=== PATIENT | male | born 1985 | race Caucasian/White ===

== ENCOUNTER → 2018-10-17 11:27 | Outpatient (CLI) | payer MEDICAID, SELFPAY | PROVIDERS: Family Provider Family Medicine; PCP Family Medicine; Visit Provider Family Medicine | DX: R11.10 Vomiting, unspecified (principal) ==

== ENCOUNTER → 2022-01-02 | Outpatient (CLI) | payer MEDICARE, MEDICAID, SELFPAY ==
--- NOTE | 2022-01-02 14:18 | RAD_ITS ---
STUDY: X-RAY - LUMBAR SPINE REASON FOR EXAM: Male, 36 years old. OTHER INTERVERTEBRAL DISC DEGENERATION, LUMBOSACRAL REGION TECHNIQUE: 3 view(s) of the lumbar spine were obtained. COMPARISON: None FINDINGS: Normal lumbar lordosis. There is scoliosis. There is a normal alignment of the vertebrae. Normal vertebral bodies and endplates. Normal disc space heights. The soft tissue structures are unremarkable. RAD/Lumbar Spine 2 or 3 Views IMPRESSION: There is scoliosis. No evidence of fracture. Electronically Signed: Judah Alcala MD at 6:45 EDT ,
== END | disposition home or self-care (01) ==
PROVIDERS: PCP Family Medicine; Visit Provider Anesthesiology Pain Medicine
DX: M51.37 Other intervertebral disc degeneration, lumbosacral region (principal)
CPT/HCPCS: 72100

== ENCOUNTER 2022-01-05 14:50 | Outpatient (RCR) | payer MEDICARE, MEDICAID, SELFPAY ==
--- NOTE | 2022-01-05 15:39 | HP.PTEVAL ---
Patient's Visit Information POLLY العراقي is a 36 year old M referred to Physical Therapy by Dr. Kate Ventura MD with a diagnosis of Back pain. Date of Evaluation: 01/05/22 Physical Therapist: Hollis Roberto DPT, OCS, CSCS - Visit Plan Frequency: 2x /Week Duration: 4-6 Weeks Plan: 2x/week for 4 weeks for. 1. HS and quad stretching to HEP. 2. LB ROM exercises to HEP. 3. pelvic, hip, core and le/postural strength in gym with joining local gym as exit strategy with list. - Subjective Staff is with him. I got scoliosis. Can't get rid of it. Pain since 17. pain is over spine LB to thoracic spine. pain is a lot worse now. is on arthitis meds. Worsening with working long hours. 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 Worse after work. Pain after work 6/10 and feels better when relaxed at home and in shower. Gets aleida horses in legs, denies numbness or tingling. Cramps are in calves. Sleep is interrupted sometimes after busy work. Lives with two other guys in shelter. Has basement steps which are not a problem. Dresses self and cooks and basic ADLs are done I. Plays video games and pain not a problem here. No exercises for back. - Pain LBP Pain Intensity (Out of 10): 0 Pain Intensity Range: 0, 6 - Objective Walks normal adn I into PT . Trasnfers I, Steps with one rail I. A and O to place and persona nd day. LB AROM ext min limited, flexion mod limited, SB min limited, no pain today except mild discomfort ipsilaterally with each SB. very tight HS at -40 90/90 test B and quad with limitations when hip extended. reflexes 2/3 patella and achilles. Sensation LE WNL to gross light touch. Strength LE ankles and knees 4+ B, hip ext and abd 3+ and flexion 4- B. - slump, - SLR. Poor pelvic control, ab and back extension strength 3+. - Balance/Special Test Scores Oswestry Low Back Score: 10 - Goals Goal 1:: Work without increased pain in LB for 6 hours. Goal Time Frame: 2-4 Weeks Goal 2:: I approp HEP too manage condition and pain Goal Time Frame: 2-4 Weeks Goal 3:: LBP 0-1/10 at worst and 80% better. Goal Time Frame: 2-4 Weeks Goal 4:: oswestry score 5 or less. Goal Time Frame: 2-4 Weeks - Rehabilitation Potential Physical Therapy Diagnosis: LBP from likely degenerative changes and weakness. Rehabilitation Potential: Fair - Anticipated Interventions Patient/Client Instruction: Educate patient on: Condition, Plan of Care For the Purpose of:: To decrease pain, To increase ROM, To improve muscle performance and motor function, To increase tolerance to activity/condition/position, To improve ability of physical actions for home/community/work/leisure Therapeutic Exercise to Include: Strength training, Flexibilty training, Passive ROM, Active ROM, Dynamic Lumbar Stabilization For the Purpose of:: To decrease pain, To increase ROM, To improve muscle performance and motor function Manual Therapy Techniques to Include: Passive ROM, Soft tissue mobilization For the Purpose of:: To increase ROM Thank you for the opportunity to evaluate your patient. For Medicare and Medicare HMO plans, please review the plan of care and approve it. It will need to be FAXED BACK to us at [phone] for Medicare purposes. For Medicare only, by signing this I certify the plan of care. Please let me know if there are questions or concerns regarding this plan of care. Physician Signature: Date:
--- NOTE | 2022-02-09 19:04 | HP.PTDCNRP_ITS ---
POLLY العراقي was seen in my office for initial evaluation on 01/05/22. The following Plan of Care was established for this patient: Initial Frequency: 2x /Week Initial Duration: 4-6 Weeks Patient/Client Instruction: Educate patient on: Condition, Plan of Care For the Purpose of:: To decrease pain, To increase ROM, To improve muscle performance and motor function, To increase tolerance to activity/condition/position, To improve ability of physical actions for home/com munity/work/leisure Therapeutic Exercise to Include: Strength training, Flexibilty training, Passive ROM, Active ROM, Dynamic Lumbar Stabilization For the Purpose of:: To decrease pain, To increase ROM, To improve muscle performance and motor function Manual Therapy Techniques to Include: Passive ROM, Soft tissue mobilization For the Purpose of:: To increase ROM This patient was last seen in our office 01/05/22. Pertinent comments regarding their Physical therapy will appear below: Pt seen one visit and has no showed for the next four. yarn cleaner have been contacted that were supposed to get him here but the no shows continued. At this point, I will discontinue from my care due to nonattendance. At this point I will be discontinuing this patient from physical therapy. I would be happy to see this patient again in the future if found appropriate by the physician. Thank you! Hollis Roberto, DPT, OCS, CSCS Balance/Gait/Functional tests - Balance/Special Test Scores Oswestry Low Back Score: 10
== END 2022-01-05 19:00 | disposition home or self-care (01) ==
LOC: PT 14:50
PROVIDERS: PCP Family Medicine; Referring Provider Anesthesiology Pain Medicine; Visit Provider Anesthesiology Pain Medicine
DX: M54.9 Dorsalgia, unspecified (principal)
CPT/HCPCS: 97161

== ENCOUNTER → 2022-02-09 | Outpatient (CLI) | payer MEDICARE, MEDICAID, SELFPAY ==
--- NOTE | 2022-02-09 06:37 | MRI_ITS ---
STUDY: MRI LUMBAR SPINE WITHOUT CONTRAST REASON FOR EXAM: Male, 36 years old. RADICULOPATHY TECHNIQUE: Standardized fat and water weighted pulse sequences were obtained in the sagittal and axial planes. COMPARISON: X-ray the lumbar spine dated JANUARY 02, 2022 FINDINGS: No visualized fracture or marrow edema or compression deformity. Chronic bilateral L5 pars interarticularis defects. Multilevel listhesis of no more than 2 to 3 mm associated with scoliosis. T12-L1: Normal endplates. Normal disc height, hydration and morphology. Normal bilateral facet joints. Normal central canal and bilateral lateral recesses. Normal bilateral intervertebral neural foramina. Normal lumbar lordosis. Moderate to significant levoscoliosis. Normal conus medullaris that terminates at the T11-T12 level. L1-2: Diffuse disc desiccation with mild right side disc space narrowing and minimal annular bulging. Normal bilateral facet joints. Normal central canal and bilateral lateral recesses. Normal bilateral intervertebral neural foramina. L2-3: Normal endplates. Diffuse disc desiccation and minimal posterior asymmetric disc space narrowing without bulging or herniation of the disc. Normal bilateral facet joints. Normal central canal and bilateral lateral recesses. Normal bilateral intervertebral neural foramina. L3-4: Normal endplates. Mild posterior asymmetric disc space narrowing without bulging or herniation of the disc. Normal bilateral facet joints. Normal central canal and bilateral lateral recesses. Normal bilateral intervertebral neural foramina. L4-5: Normal endplates. Minimal posterior disc space narrowing without significant bulging or herniation of the disc. Mild facet joint hypertrophy. Normal central canal and bilateral lateral recesses. Normal bilateral intervertebral neural foramina. L5-S1: Chronic bilateral L5 pars interarticularis defects with anterolisthesis of L5 on S1 of the 7 mm. Bilateral mild foraminal stenosis in addition to traction/impingement on the nerve roots. Mild facet joint hypertrophy and degeneration. Normal endplates. Diffuse disc desiccation with mild posterior disc space narrowing without significant bulging or herniation. Normal central canal and bilateral lateral recesses. Normal visualized sacral ala. Normal visualized paraspinous soft tissue structures. MRI/Spine Lumbar (Routine) IMPRESSION: 1. Multilevel degenerative changes, as described above. 2. Chronic bilateral L5 pars interarticularis defects with anterolisthesis of L5 on S1 of the 7 mm. Bilateral mild foraminal stenosis in addition to traction/impingement on the nerve roots. Electronically Signed: Nato Merida MD at 12:31 EDT ,
== END | disposition home or self-care (01) ==
LOC: MRI 06:29
PROVIDERS: PCP Family Medicine; Referring Provider Anesthesiology Pain Medicine; Visit Provider Anesthesiology Pain Medicine
DX: M54.16 Radiculopathy, lumbar region (principal)
CPT/HCPCS: 72148

== ENCOUNTER 2022-10-24 16:09 | Emergency (ER) | payer MEDICARE, MEDICAID, SELFPAY ==
[2022-10-24 16:09] VITALS: BP 133/120; PULSE 69; RESP 16; TEMP 36.6; O2SAT 98; BMI 31.1
--- NOTE | 2022-10-24 16:27 | EKG12_ITS ---
Test Reason : CP Blood Pressure : / mmHG Vent. Rate : 065 BPM Atrial Rate : 065 BPM P-R Int : 182 ms QRS Dur : 092 ms QT Int : 380 ms P-R-T Axes : 059 057 030 degrees QTc Int : 395 ms Normal sinus rhythm Possible Left atrial enlargement Borderline ECG Confirmed by YAYA VYAS, SYLVIA ([id number]), city editor APRIL CONTEH ([id number]) on 10/25/2022 9:05:31 AM Referred By: [place] Confirmed By:SYLVIA JAVIER MD
--- NOTE | 2022-10-24 16:34 | EDS_ITS ---
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 He states it felt more like an air bubble in the left side of his chest, but it is improving. He lives in [place] and told his staff that he was feeling discomfort in the left side of his chest. He denies any nausea or vomiting. No shortness of breath or diaphoresis. He does use chewing tobacco. His history and physical is mildly limited secondary to his autism, but he states that his pain has improved and is almost gone upon examination and arrival to the ED. [facility] Medical History Essential hypertension Fibromyalgia Generalized anxiety disorder GERD (gastroesophageal reflux disease) High-functioning autism spectrum disorder History of mitral valve prolapse Mixed hyperlipidemia Primary insomnia Home Medications aripiprazole 30 mg tablet 30 mg PO DAILY 02/28/22 [History Last Taken Unknown] fenofibrate 54 mg tablet 54 mg PO DAILY 02/28/22 [History Last Taken Unknown] lisinopril 10 mg tablet 10 mg PO DAILY 02/28/22 [History Last Taken Unknown] loratadine 10 mg tablet 10 mg PO DAILY 02/28/22 [History Last Taken Unknown] metoprolol succinate 50 mg tablet,extended release 24 hr 50 mg PO DAILY 02/28/22 [History Last Taken Unknown] omeprazole 40 mg capsule,delayed release 40 mg PO DAILY 02/28/22 [History Last Taken Unknown] polyethylene glycol 3350 17 gram oral powder packet (Miralax) 17 g PO DAILY 02/28/22 [History Last Taken Unknown] trazodone 50 mg tablet 50 mg PO QHS PRN Sleep 02/28/22 [History Last Taken Unknown] trihexyphenidyl 2 mg tablet 2 mg PO QHS PRN sleep 02/28/22 [History Last Taken Unknown] verapamil 120 mg tablet,extended release 120 mg PO BID 02/28/22 [History Last Taken Unknown] Allergy/AdvReac Type Severity Reaction Status Date / Time No Known Drug Allergies Allergy Unknown Unknown Verified 10/24/22 16:11 Surgical History History of cholecystectomy Social History Smoking Status: Never smoker Smokeless tobacco user: snuff alcohol intake: never substance use type: does not use ROS ROS ED ROS Narrative Constitutional: No fever, no chills. HEENT: No sore throat. No neck pain. No loss of vision. No rhinorrhea. Cardiovascular: Left-sided chest pain. No palpitations. No pedal edema. Respiratory: No cough, no shortness of breath. Abdominal: No abdominal pain. No nausea. No vomiting. Genitourinary: No dysuria. No hematuria. Musculoskeletal: No myalgias. No arthralgias. Neurologic: No headaches. No dizziness. No lightheadedness. Skin: No rash. No change in color. Psychiatric: No depression. No anxiety. EXAM Physical Exam Narrative Exam Narrative: Afebrile. Vital signs noted. HEENT: Normocephalic. Atraumatic. PERRL, EOMI. Neck soft and supple. No point tenderness or step off. Cardiovascular: Regular rate and rhythm. No murmurs, rubs, or gallops appreciated. No reproducible pain or crepitance left chest. Respiratory: No tachypnea. Lungs clear to auscultation bilaterally. Gastrointestinal: Abdomen soft, nontender, with normoactive bowel sounds. No rebound or guarding. Neurological: Awake. Alert. Nonfocal, nonlateralizing. Skin: No rash. Normal color. No pallor. Musculoskeletal: No pedal edema. Full range of motion extremities. Psychiatric: Consistent with autism. Mild anxiety. Const Vital Signs: 10/24/22 16:09 10/24/22 16:54 10/24/22 16:57 Temperature 98 F Temperature Source Temporal Pulse Rate 69 Respiratory Rate 16 Respiratory Effort Normal Non-Labored Blood Pressure 133/120 H Blood Pressure Mean 124 Pulse Ox 98 97 Oxygen Delivery Method Room Air Room Air 10/24/22 18:35 10/24/22 19:16 Temperature Temperature Source Pulse Rate 64 74 Respiratory Rate 14 16 Respiratory Effort Blood Pressure 138/86 H 138/88 H Blood Pressure Mean 103 104 Pulse Ox 98 98 Oxygen Delivery Method Room Air Room Air Heart Score History: Slightly/Non-Suspicious ECG: Normal Age: </= 45 years Risk Factors: 1 or 2 Risk Factors Score: 1 MDM MDM MDM Narrative Medical decision making narrative: Patient has a low heart score. EKG was obtained to rule out STEMI and interpreted by myself which demonstrates normal sinus rhythm at 65 bpm without ectopy or acute ST changes. No STEMI. He was given aspirin. Chest pain work- up will be pursued including laboratory work in the form of CBC and BMP along with troponin and delta troponin. Chest x-ray will also be obtained. I reviewed his laboratory work, he has a normal white count of 8.3, normal hemoglobin of 15.5, normal platelet count of 313. BMP is grossly unremarkable with normal sodium of 140 and normal potassium of 3.9. Glucose appropriately elevated at 115 with a normal anion gap of 6. Initial high-sensitivity troponin is 11. 2-hour repeat is 14 and less than 7 for a delta troponin. I interpreted his chest x-ray which shows no acute process, no pneumothorax and no evidence of pneumonia. I reviewed the radiology report which confirms this. At this point in time, given his negative work-up and rule out by biomarkers, I feel he can be discharged safely home with follow-up to his primary care provider. Disposition is discharged home in stable condition. Return instructions were reviewed. Lab Data Attestation: I reviewed the patient's lab results. Labs: Laboratory Results - last 24 hr 10/24/22 10/24/22 10/24/22 16:50 16:50 19:12 WBC 8.3 RBC 5.73 Hgb 15.5 Hct 45.6 MCV 79.6 L MCH 27.1 MCHC 34.0 RDW Std Deviation 37.2 RDW Coeff of Vivek 13.1 Plt Count 313 MPV 10.2 Immature Gran % (Auto) 0.200 Neut % (Auto) 71.7 H Lymph % (Auto) 21.5 Gila % (Auto) 5.0 Eos % (Auto) 1.2 Baso % (Auto) 0.4 Absolute Neuts (auto) 6.0 Absolute Lymphs (auto) 1.79 Nucleated RBC % 0 Sodium 140 Potassium 3.9 Chloride 107 Carbon Dioxide 27.0 Anion Gap 6 BUN 13 Creatinine 0.98 Estim Creat Clear Calc 104.21 Est GFR (MDRD) Af Amer 112 Est GFR (MDRD) Non-Af 92 BUN/Creatinine Ratio 13.3 Glucose 115 H Calcium 9.1 Troponin I High Sens 11 14 Radiography Diagnostic Testing: Clinical Impression(s) from Imaging Studies Chest X-Ray 10/24/22 17:04 IMPRESSION: No radiographic evidence of acute cardiopulmonary disease. Electronically Signed: Pippa Smalls MD at 17:44 EST , Discharge Plan Triage Chief Complaint: Chest Pain ED Provider: Mayo White Dx/Rx/DC Orders Clinical Impression: Chest pain, Essential hypertension Instructions: ED Chest Pain, Uncertain Cause Prescriptions: No Action polyethylene glycol 3350 [Miralax] 17 gram powder in packet 17 g PO DAILY metoprolol succinate 50 mg tablet extended release 24 hr 50 mg PO DAILY fenofibrate 54 mg tablet 54 mg PO DAILY omeprazole 40 mg capsule,delayed release(DR/EC) 40 mg PO DAILY lisinopril 10 mg tablet 10 mg PO DAILY verapamil 120 mg tablet extended release 120 mg PO BID aripiprazole 30 mg tablet 30 mg PO DAILY trihexyphenidyl 2 mg tablet 2 mg PO QHS PRN (Reason: sleep) trazodone 50 mg tablet 50 mg PO QHS PRN (Reason: Sleep) loratadine 10 mg tablet 10 mg PO DAILY Primary Care Provider: Js Jama Referrals: Js Jama MD [Primary Care Provider] - 3-5 Days if not improving Disposition Disposition: Home, Self Care
[2022-10-24 16:54] VITALS: O2SAT 97
[2022-10-24 16:59] LABS: Absolute Lymphocyte Count 1.79 X10^3/uL (0.83-4.51); Basophil# 0.03 X10^3/uL; Basophil% 0.4 % (0-1); Eosinophils% 1.2 % (0-5); Hematocrit 45.6 % (40-54); Hemoglobin 15.5 g/dL (13.0-16.5); Lymphocyte # 1.79 X10^3/ul (0.83-4.51); Lymphocyte % 21.5 % (19-41); Mean Corpuscular Hgb 27.1 pg (27.0-32.0); Mean Corpuscular Volume 79.6 fL (80-94); Mean Platelet Vol. 10.2 fl (6.2-12.0); Monocyte# 0.42 X10^3/uL; NRBC Flagged by Analyzer 0 % (0-5); Neutrophil # 5.97 X10^3/uL (2.7-7.7); Neutrophil % 71.7 % (47-70); Platelet Count 313 K/mm3 (150-450); RBC Distribution Width CV 13.1 % (11.6-14.6); RBC Distribution Width SD 37.2 fl (35.1-43.9); Red Blood Count 5.73 M/mm3 (4.6-6.2); White Blood Count 8.3 K/mm3 (4.4-11.0)
--- NOTE | 2022-10-24 17:04 | RAD_ITS ---
INDICATION: chest pain EXAMINATION/TECHNIQUE: X-RAY - XR Chest 1 View COMPARISON: None. FINDINGS: LINES/DEVICES: None. LUNGS: No consolidation, edema or effusion. No pneumothorax. MEDIASTINUM AND CARDIOVASCULAR STRUCTURES: Cardiac silhouette not enlarged. Central airways and mediastinal contour are unremarkable. BONES AND SOFT TISSUES: Unremarkable. RAD/Chest 1 View (Portable) IMPRESSION: No radiographic evidence of acute cardiopulmonary disease. Electronically Signed: Pippa Smalls MD at 17:44 EST Reading Location ID and State: [id number] / Tel , Service support ,
[2022-10-24] MEDS: Aspirin 81 MG TAB.CHEW 324 MG PO (17:13)
[2022-10-24 17:19] LABS: Anion Gap 6 (5-15); BUN 13 mg/dL (7-18); BUN/Creat Ratio 13.3 RATIO (10-20); Calcium,Total 9.1 mg/dL (8.5-10.1); Chloride 107 mmol/L (98-107); Creatinine, Serum 0.98 mg/dL (0.70-1.30); EST Glomerular Filtration Rate 92 mL/min (>60); Est Glom Filt Rate - Afr Amer 112 mL/min (>60); Estimated Creatinine Clearance 104.21 ml/min; Glucose 115 mg/dL (74-106); Potassium 3.9 mmol/L (3.5-5.1); Sodium Level 140 mmol/L (136-145); Troponin-I HS (w/2H Reflex) 11 pg/mL (3.0-78.0)
[2022-10-24 18:35] VITALS: BP 138/86; PULSE 64; RESP 14; O2SAT 98
[2022-10-24 18:57] LABS: Reflex Troponin-HS? (from REC) Y
[2022-10-24 19:16] VITALS: BP 138/88; PULSE 74; RESP 16; O2SAT 98
[2022-10-24 19:46] LABS: Troponin-I HS 14 pg/mL (3.0-78.0)
[2022-10-24 20:13] VITALS: BP 134/91; PULSE 84; RESP 16; O2SAT 98
== END 2022-10-24 20:15 | disposition home or self-care (01) ==
PROVIDERS: Emergency Provider Emergency Medicine; PCP Family Medicine; Visit Provider Emergency Medicine
DX: R07.9 Chest pain, unspecified (principal); I10 Essential (primary) hypertension; E78.2 Mixed hyperlipidemia; F17.220 Nicotine dependence, chewing tobacco, uncomplicated; F84.0 Autistic disorder
CPT/HCPCS: 71045; 80048; 84484; 85025; 93005; 99284; A4216

== ENCOUNTER 2024-11-30 12:07 | Emergency (ER) | payer MEDICARE, MEDICAID, SELFPAY ==
[2024-11-30 12:07] VITALS: O2SAT 96
[2024-11-30 12:08] VITALS: BP 125/85; PULSE 92; RESP 15; TEMP 36; O2SAT 97; BMI 27.4
--- NOTE | 2024-11-30 12:16 | EDS_ITS ---
HPI History of Present Illness Chief Complaint: Cough PFSH [facility] Medical History Essential hypertension Fibromyalgia Generalized anxiety disorder GERD (gastroesophageal reflux disease) High-functioning autism spectrum disorder History of mitral valve prolapse Mixed hyperlipidemia Primary insomnia Home Medications ?Medication ?Instructions ?Recorded ?Last Taken ?Type aripiprazole 30 mg tablet 30 mg PO DAILY 02/28/22 Unkn own History fenofibrate 54 mg tablet 54 mg PO DAILY 02/28/22 Unkn own History lisinopril 10 mg tablet 10 mg PO DAILY 02/28/22 Unkn own History loratadine 10 mg tablet 10 mg PO DAILY 02/28/22 Unkn own History metoprolol succinate 50 mg 50 mg PO DAILY 02/28/22 Unk nown History tablet,extended release 24 hr omeprazole 40 mg capsule,delayed 40 mg PO DAILY Unknown History release polyethylene glycol 3350 17 gram 17 g PO DAILY 2 Unknown History oral powder packet (Miralax) trazodone 50 mg tablet 50 mg PO QHS PRN Sleep 02/28 Unknown History trihexyphenidyl 2 mg tablet 2 mg PO QHS PRN sleep 02/02 04/24 Unknown History verapamil 120 mg tablet,extended 120 mg PO BID 2 Unknown History release amoxicillin 875 mg-potassium 1 tab PO BID 7 days #14 t abs 11/30/24 Unknown Rx clavulanate 125 mg tablet benzonatate 100 mg capsule 100 mg PO TID PRN cough #20 caps 11/30/24 Unknown Rx Allergy/AdvReac Type Severity Reaction Status Date / Time No Known Drug Allergies Allergy Unknown Unknown Verified 11/30/24 12:08 Surgical History History of cholecystectomy Social History Smoking Status: Never smoker Smokeless tobacco user: snuff alcohol intake: never substance use type: does not use EXAM Physical Exam Const Vital Signs: 11/30/24 12:07 11/30/24 12:08 11/30/24 13:46 Temperature 96.8 F L 98 F Temperature Source Temporal Pulse Rate 92 87 Respiratory Rate 15 14 Respiratory Effort Short of Breath Respiratory Depth Normal Respiratory Pattern Normal Blood Pressure 125/85 H 121/81 H Blood Pressure Mean 98 94 Pulse Ox 97 99 Oxygen Delivery Method Room Air Room Air [facility] Narrative Medical decision making narrative: HISTORY OF PRESENT ILLNESS: Chief complaint: Cough 39 M history of hypertension, fibromyalgia and autism here with cough. Notes rib pain only with cough. Denies chest pain or shortness of breath while not coughing. Denies leg swelling. Denies recent sick contacts. REVIEW OF SYSTEMS: Pertinent positives: Cough, rib pain with cough Pertinent negatives: Chest pain, shortness of breath, leg swelling PHYSICAL EXAM: Nursing triage notes reviewed, Vital signs reviewed Constitutional: please see [facility] HENT: MMM Eyes: Pupils equal round and reactive to light, Extraocular muscles intact Neck: No stridor, no JVD, full neck ROM Lungs: Clear to auscultation, No wheezing or rales. No increased work of breathing, no conversational dyspnea, no accessory muscle use, no nasal flaring. No respiratory distress noted Heart: Regular rate and rhythm, No murmurs, No rubs and No gallops, 2+ distal pulses (radial, femoral, posterior tibial) in all extremities Abdomen: Soft, there is no tenderness, rigidity, rebound or guarding, no obvious peritoneal signs, no palpable pulsatile abdominal masses, no auscultated abdominal bruit : No CVAT Extremities: No edema Neuro: No new focal neurological deficits, cranial nerves II through XII intact, 5/5 strength in all present extremities. Intact sensation to light touch in all present extremities, 2+ reflexes bilateral patella tendons. Skin: No rash or lesions noted MEDICAL DECISION MAKING: Chief Complaint: please see [facility] External records reviewed: Reviewed prior cardiovascular testing Factors affecting care: As per [facility] Social determinants of health: history of autism History obtained from others: none Consults: none [facility] Narrative: The patient was initially hemodynamically stable, afebrile and nontoxic- appearing. Exam without obvious focal lung findings. Patient appeared comfortable. Speaking full sentences. No respiratory distress. I considered the following differential diagnosis: Pneumonia, COVID, RSV or flu ALL IMAGES (IF OBTAINED) HAVE BEEN PERSONALLY REVIEWED AND INTERPRETED BY MYSELF. Chest x-ray was read reviewed personally so showed evidence of right lower lobe pneumonia. Will start empiric antibiotics (Augmentin). Strict return precautions discussed. The patient and/or family, caregivers express understanding. The patient and/or family, caregivers agrees with the plan. Shared decision making: I will have a discussion with the patient and or visitors regarding risk/benefits of further testing or admission. They will be made aware of of the risk/benefits inherent in this decision they will be given the opportunity to voice understanding. Total critical care time today provided was at least 0 minutes. This excludes separately billable procedures. Critical care time (if documented) is secondary to the patient having high probability of clinically significant/life threatening deterioration in the patient's condition which required my urgent intervention. Impression: 1. Community-acquired pneumonia 2. Cough Dispo: Discharge home This note was generated with [employer] dictation software. It may contain incorrect words, spelling, and punctuation that were not noted in review of the chart prior to signing. Radiography Diagnostic Testing: Clinical Impression(s) from Imaging Studies Chest X-Ray 11/30/24 13:00 IMPRESSION: There is concern for right lower lobe pneumonia Reading Location: [facility] Discharge Plan Triage Chief Complaint: Cough ED Provider: Tad Jack Dx/Rx/DC Orders Instructions: ED Pneumonia (Adult) Prescriptions: New amoxicillin-pot clavulanate 875-125 mg tablet 1 tab PO BID 7 Days Qty: 14 0RF benzonatate 100 mg capsule 100 mg PO TID PRN (Reason: cough) Qty: 20 0RF No Action polyethylene glycol 3350 [Miralax] 17 gram powder in packet 17 g PO DAILY metoprolol succinate 50 mg tablet extended release 24 hr 50 mg PO DAILY fenofibrate 54 mg tablet 54 mg PO DAILY omeprazole 40 mg capsule,delayed release(DR/EC) 40 mg PO DAILY lisinopril 10 mg tablet 10 mg PO DAILY verapamil 120 mg tablet extended release 120 mg PO BID aripiprazole 30 mg tablet 30 mg PO DAILY trihexyphenidyl 2 mg tablet 2 mg PO QHS PRN (Reason: sleep) trazodone 50 mg tablet 50 mg PO QHS PRN (Reason: Sleep) loratadine 10 mg tablet 10 mg PO DAILY Primary Care Provider: Les Mcclellan Referrals: Les Mcclellan DO [Primary Care Provider] - Activity Restrictions/Additional Instructions: Thank you for trusting us with your care today! Your x-rays are consistent with pneumonia. There is a bacterial infection of the lung. Secured with antibiotics. Please take antibiotics until course complete. Please take Tylenol (2 pills, 650 mg), ibuprofen (2 pills, 400 mg) every 6 hours as needed for pain and fever control. Please return to the emergency department if your symptoms change or worsen. Please follow with your primary care physician for further outpatient evaluation and management. Print Language: Kyrgyz Disposition Disposition: Home, Self Care Discharge Date/Time: 11/30/24 13:50
[2024-11-30] MEDS: Benzonatate 100 MG Capsule PO (12:47)
--- NOTE | 2024-11-30 13:00 | RAD_ITS ---
PROCEDURE: CHEST PA AND LATERAL 11/30/2024 REASON FOR EXAM: COUGH R/O pneumonia TECHNIQUE: Frontal and lateral views of the chest. COMPARISON: Chest radiograph 10/24/2022 FINDINGS: Hardware: None Heart: Normal size and contour Mediastinum: Normal contour and appearance. Lungs: Worrisome density 4 round right lower lobe pneumonia. Left lung is grossly clear. No pleural effusion or pathologic thickening of interstitium Bones: RAD/Chest PA and Lateral IMPRESSION: There is concern for right lower lobe pneumonia Reading [facility]
[2024-11-30] MEDS: Amox/Clavulanate 875 MG Tablet PO (13:42)
[2024-11-30 13:46] VITALS: BP 121/81; PULSE 87; RESP 14; TEMP 36.6; O2SAT 99
== END 2024-11-30 13:50 | disposition home or self-care (01) ==
PROVIDERS: Emergency Provider Emergency Medicine; PCP Family Medicine; Visit Provider Emergency Medicine
DX: J18.9 Pneumonia, unspecified organism (principal); I10 Essential (primary) hypertension; Z11.52 Encounter for screening for COVID-19; E78.2 Mixed hyperlipidemia; F84.0 Autistic disorder; M79.7 Fibromyalgia; F41.1 Generalized anxiety disorder; Z79.899 Other long term (current) drug therapy
CPT/HCPCS: 71046; 87631; 99282